=== PATIENT | female | born 1990 | race Two or more races ===

== ENCOUNTER 2017-04-30 18:33 | Emergency (ER) | payer SELFPAY ==
[~2017-04-30] VITALS: Ht 152.4 cm; Wt 71.2 kg
[2017-04-30 18:37] VITALS: BP 112/64
[2017-04-30] MEDS ORDERED: LIDOCAINE VISCOUS 2% 15ML UD PO ONE (19:30)
== END 2017-04-30 20:06 | disposition home or self-care (01) ==
LOC: ER 18:33
DX: J02.9 Acute pharyngitis, unspecified (principal)

== ENCOUNTER 2017-08-24 19:24 | Emergency (ER) | payer MEDICAID ==
[~2017-08-24] VITALS: Ht 152.4 cm; Wt 70.8 kg
[2017-08-24 20:41] LABS: Urine Bacteria NONE SEEN /hpf (None Seen); Urine Blood TRACE /uL (Negative); Urine Mucus FEW (None Seen); Urine Specific Gravity 1.023 (1.001-1.035); Urine WBC 4 /hpf (0 - 5)
[2017-08-24 21:13] LABS: Basophils # (auto) 0.1 uL; Basophils % (auto) 0.4 % (0.0-2.0); Eosinophils # (auto) 0.1 uL; Hematocrit 38.9 % (36.0-46.0); Hemoglobin 13.4 g/dL (12.2-16.2); Lymphocytes # (auto) 3.4 uL; Lymphocytes % (auto) 27.2 % (10.0-50.0); Mean Corpuscular Hemoglobin 32.9 pg (28.0-32.0); Mean Corpuscular Hgb Conc. 34.4 g/dL (32.0-36.0); Mean Corpuscular Volume 95.6 fL (80.0-100.0); Monocytes % (auto) 7.8 % (0.0-12.0); Neutrophils % (auto) 63.6 % (37.0-80.0); Nucleated Red Blood Cells % 0.1 %; Platelet Count (auto) 333 10^3/uL (140-450); Red Blood Cells 4.07 10^6/uL (4.0-5.20); Red Cell Distribution Width 12.7 % (11.8-14.3); White Blood Cell 12.6 10^3/uL (4.4-10.8)
[2017-08-24 21:24] LABS: Albumin 3.9 g/dL (3.4-5.0); BUN/Creatinine Ratio 23.2; Bilirubin, Total 0.2 mg/dL (0.2-1.0); Calcium 8.5 mg/dL (8.5-10.1); Potassium 3.7 mmol/L (3.5-5.1); Total Protein 7.6 g/dL (6.4-8.2)
[2017-08-24] MEDS ORDERED: MORPHINE SULFATE 4 MG/ML SYR/VIAL IV ONE (22:45)
[2017-08-24] MEDS ORDERED: ONDANSETRON HCL 4 MG/2 ML VIAL IV ONE (23:00)
[2017-08-25] MEDS ORDERED: MORPHINE SULFATE 4 MG/ML SYR/VIAL IV ONE (00:30)
[2017-08-25 01:36] VITALS: BP 113/63
== END 2017-08-25 01:48 | disposition home or self-care (01) ==
LOC: ER 19:24
DX: N20.0 Calculus of kidney (principal); Z98.51 Tubal ligation status
CPT/HCPCS: 36415; 74176; 80053; 81001; 82150; 83690; 84702; 85025; 96374; 96375; 96376; 99285; J2270; J2405

== ENCOUNTER 2017-08-30 12:20 | Emergency (ER) | payer MEDICAID ==
[~2017-08-30] VITALS: Ht 152.4 cm; Wt 71.2 kg
[2017-08-30 12:51] VITALS: BP 118/66
[2017-08-30] MEDS ORDERED: KETOROLAC TROMETH 60MG/2ML VIAL IM ONE (14:00)
== END 2017-08-30 14:02 | disposition home or self-care (01) ==
LOC: ER 12:20
DX: S01.21XA Laceration without foreign body of nose, initial encounter (principal); F12.10 Cannabis abuse, uncomplicated; Z98.51 Tubal ligation status; W54.0XXA Bitten by dog, initial encounter; Y93.89 Activity, other specified; Y99.8 Other external cause status; Y92.89 Other specified places as the place of occurrence of the external cause
CPT/HCPCS: 12013; 99283; J1885